=== PATIENT | female | born 1990 | race Asian ===

== ENCOUNTER 2018-04-07 00:16 | Inpatient (IN) | payer SELFPAY ==
[~2018-04-07] VITALS: Ht 157.5 cm; Wt 74.4 kg
[2018-04-07] MEDS ORDERED: PREN-546 PO (01:01)
[2018-04-07] MEDS ORDERED: ASCO500T45 PO (01:01)
[2018-04-07] MEDS ORDERED: FERR-252 PO (01:01)
[2018-04-07] MEDS ORDERED: METHYLERGONOVINE 0.2 MG/ML AMP IM PRN ×2 (01:05→11:00)
[2018-04-07] MEDS ORDERED: OXYTOCIN 20 UNITS in LACTATED RINGERS 1,000 ML IV SCH (01:05)
[2018-04-07] MEDS ORDERED: NALBUPHINE 10 MG/ML AMP IVP PRN (01:05)
[2018-04-07] MEDS ORDERED: CARBOPROST 250 MCG/ML AMP IM PRN (01:05)
[2018-04-07] MEDS ORDERED: OXYTOCIN 10 UNITS/ML VIAL IM ONE (01:05)
[2018-04-07] MEDS ORDERED: AMPICILLIN 2,000 MG in NACL 0.9% 100 ML IV SCH (01:05)
[2018-04-07] MEDS ORDERED: PROMETHAZINE 25 MG/ML VIAL IM PRN (01:05)
[2018-04-07 01:20] VITALS: BP 107/60
[2018-04-07] MEDS ORDERED: MISOPROSTOL 25 MCG TAB ONE ×3 (01:44→12:17)
[2018-04-07] MEDS ORDERED: AMPICILLIN 2,000 MG VIAL ONE (01:45)
[2018-04-07 01:47] LABS: BASOPHILS % (AUTO) 0.5 % (0.0-2.0); EOSINOPHILS # (AUTO) 0.2 K/uL (0-0.4); EOSINOPHILS % (AUTO) 2.4 % (0.0-4.0); HEMATOCRIT 35.6 % (36-48); HEMOGLOBIN 11.8 g/dL (12.0-16.0); LYMPHOCYTES # (AUTO) 2.1 K/uL (2.5-16.5); MEAN CORPUSCULAR HEMOGLOBIN 29 pg (27-31); MEAN CORPUSCULAR HGB CONC 33 g/dL (33-37); MEAN CORPUSCULAR VOLUME 88.7 fL (80-94); MONOCYTES # (AUTO) 0.8 K/uL (0.8-1.0); MONOCYTES % (AUTO) 8.8 % (1.7-9.3); NEUTROPHILS # (AUTO) 6.2 K/uL (1.8-7.7); NEUTROPHILS % (AUTO) 66.3 % (42.2-75.2); PLATELET COUNT (AUTO) 198 K/uL (140-450); RED BLOOD CELL COUNT(AUTO) 4.01 MIL/uL (4.20-5.40); WHITE BLOOD COUNT (AUTO) 9.4 K/uL (4.8-10.8)
[2018-04-07 01:54] LABS: APPEARANCE,URINE CLEAR (CLEAR); BILIRUBIN,URINE NEGATIVE (NEGATIVE); BLOOD, URINE NEGATIVE (NEGATIVE); COLOR,URINE YELLOW (YELLOW); LEUKOCYTE ESTERASE ,URINE 2+ (NEGATIVE); NITRITE, URINE NEGATIVE (NEGATIVE); UGLUCOSE NEGATIVE (NEGATIVE)
[2018-04-07 01:57] LABS: ANION GAP 13.4 (8-16); CARBON DIOXIDE 24.6 mmol/L (21-32); CREATININE 0.5 mg/dL (0.6-1.3)
[2018-04-07] MEDS: LACTATED RINGERS 1,000 ML IV SCH ×3 (02:00→18:09)
[2018-04-07] MEDS: MISOPROSTOL 25 MCG TAB VG PRN ×3 (02:01→12:15)
[2018-04-07 02:04] LABS: ALBUMIN 2.8 g/dL (3.4-5.0); TOTAL BILIRUBIN 0.2 mg/dL (0.0-1.0)
[2018-04-07 02:10] LABS: BARBITURATE, URINE NEG. ng/ml (NEG <=200); BENZODIAZEPINE, URINE NEG. ng/mL (NEG <=200); CANNABINOID, URINE NEG. ng/mL (NEG <=50); COCAINE, URINE NEG. ng/mL (NEG <=300); OPIATE, URINE NEG. ng/mL (NEG <=2000); PHENCYCLIDINE SCREEN,URINE NEG. ng/mL (NEG <=25)
[2018-04-07 02:19] LABS: RBC,URINE 0-5 (RARE) /HPF (0-5); WBC,URINE 0-5 (RARE) /HPF (0-5)
[2018-04-07] MEDS ORDERED: LOTC TP (04:58)
[2018-04-07] MEDS: AMPICILLIN 1,000 MG in NACL 0.9% 50 ML IV SCH ×5 (06:05→22:01)
[2018-04-07] MEDS ORDERED: AMPICILLIN 1,000 MG VIAL ONE ×5 (06:10→22:01)
--- NOTE | 2018-04-07 09:54 | NUR ---
PATIENT HAS BEEN SCREENED AND CATEGORIZED LOW NUTRITION RISK. PATIENT WILL BE SEEN WITHIN 7 DAYS OF ADMISSION. 04/13/[address]
[2018-04-07] MEDS ORDERED: IBUPROFEN 800 MG TAB PO PRN (11:00)
[2018-04-07] MEDS ORDERED: oxyCODONE/APAP 5/325 MG 1 TAB TAB PO PRN (11:00)
[2018-04-07] MEDS ORDERED: HYDROcodone/APAP 5/325 MG 1 TAB TAB PO PRN (11:00)
[2018-04-07] MEDS ORDERED: BENZOCAINE/MENTHOL 20%-0.5% 60 GM CAN TP PRN (11:00)
[2018-04-07] MEDS ORDERED: OXYTOCIN 10 UNITS/ML VIAL IM PRN (11:00)
[2018-04-07] MEDS ORDERED: MEASLES, MUMPS, AND RUBELLA 1 VIAL SQVAC PRN (11:00)
[2018-04-07] MEDS ORDERED: ROPIVACAINE 0.2%/NS PREMIX 250 ML EPI ONE (18:34)
[2018-04-07] MEDS ORDERED: ROPIVACAINE 0.2%/NS PREMIX 250 ML EPI SCH (18:45)
[2018-04-07] MEDS ORDERED: TEMAZEPAM 15 MG CAP PO PRN (21:00)
[2018-04-07] MEDS ORDERED: DOCUSATE SOD/SENNA 50/8.6 MG 1 TAB PO SCH (21:00)
[2018-04-08] MEDS ORDERED: AMPICILLIN 1,000 MG VIAL ONE (02:02)
[2018-04-08] MEDS: AMPICILLIN 1,000 MG in NACL 0.9% 50 ML IV SCH (02:02)
[2018-04-08] MEDS ORDERED: OXYTOCIN 10 UNITS/ML VIAL ONE (03:03)
[2018-04-08] MEDS ORDERED: ROPIVACAINE 0.2%/NS PREMIX 250 ML EPI ONE (03:22)
[2018-04-08] MEDS ORDERED: MEASLES, MUMPS, AND RUBELLA 1 VIAL SQVAC PRN (05:05)
[2018-04-08] MEDS ORDERED: oxyCODONE/APAP 5/325 MG 1 TAB TAB PO PRN (05:05)
[2018-04-08] MEDS ORDERED: HYDROcodone/APAP 5/325 MG 1 TAB TAB PO PRN (05:05)
[2018-04-08] MEDS ORDERED: METHYLERGONOVINE 0.2 MG/ML AMP IM PRN (05:05)
[2018-04-08] MEDS ORDERED: TEMAZEPAM 15 MG CAP PO PRN (05:05)
[2018-04-08] MEDS ORDERED: BENZOCAINE/MENTHOL 20%-0.5% 60 GM CAN TP PRN (05:05)
[2018-04-08] MEDS ORDERED: OXYTOCIN 10 UNITS/ML VIAL IM PRN (05:05)
[2018-04-08] MEDS ORDERED: oxyCODONE/APAP 5/325 MG 1 TAB TAB ONE (05:39)
[2018-04-08 08:09] LABS: HEMATOCRIT 33.1 % (36-48); HEMOGLOBIN 10.8 g/dL (12.0-16.0)
[2018-04-08] MEDS ORDERED: AMMONIA AROMATIC 1 INHL INH ONE (08:48)
[2018-04-08] MEDS: IBUPROFEN 800 MG TAB PO PRN ×2 (10:11→18:04)
[2018-04-08] MEDS ORDERED: DOCUSATE SOD/SENNA 50/8.6 MG 1 TAB PO SCH (21:00)
[2018-04-09] MEDS: IBUPROFEN 800 MG TAB PO PRN ×3 (00:46→20:12)
[2018-04-09 07:14] LABS: HEMATOCRIT 29.8 % (36-48); HEMOGLOBIN 9.7 g/dL (12.0-16.0)
[2018-04-09] MEDS ORDERED: TRIAMCINOLONE 0.1% CRM 15 GM TUBE TP SCH (22:00)
== END 2018-04-09 23:30 | disposition home or self-care (01) | DRG 775 ==
LOC: MLD 00:16 → MFCC 04-08 11:31
PROVIDERS: ADMIT Obstetrics & Gynecology; ATTEND Obstetrics & Gynecology
PROC: 3E0234Z Introduction of Serum, Toxoid and Vaccine into Muscle, Percutaneous Approach (ICD-10-PCS; 2018-04-08)
PROC: 10E0XZZ Delivery of Products of Conception, External Approach (ICD-10-PCS; principal; 2018-04-09)
PROC: 10907ZC Drainage of Amniotic Fluid, Therapeutic from Products of Conception, Via Natural or Artificial Opening (ICD-10-PCS; 2018-04-09)
PROC: 0W8NXZZ Division of Female Perineum, External Approach (ICD-10-PCS; 2018-04-09)
PROC: 00HU33Z Insertion of Infusion Device into Spinal Canal, Percutaneous Approach (ICD-10-PCS; 2018-04-09)
PROC: 3E0R3BZ Introduction of Anesthetic Agent into Spinal Canal, Percutaneous Approach (ICD-10-PCS; 2018-04-09)
DX: O99.824 Streptococcus B carrier state complicating childbirth (principal); Z37.0 Single live birth; Z3A.39 39 weeks gestation of pregnancy; Z23 Encounter for immunization
CPT/HCPCS: 36415; 51702; 59200; 80053; 80305; 81001; 85018; 85025; 86592; 86762; 86886; 86900; 86901; 87086; 87340; 87653-90; 90715; J0290; J2590; J2795; J7120